=== PATIENT | male | born 1960 | race Caucasian/White ===

== ENCOUNTER 2022-10-09 11:53 | Day surgery (SDC) | payer OTHER, SELFPAY ==
[2022-10-09 12:45] VITALS: BMI 26.3
[2022-10-09 12:57] VITALS: BP 101/75; PULSE 67; RESP 18; TEMP 36.6; O2SAT 95
[2022-10-09] MEDS: Lactated Ringers 1,000 ML 50 ML IVCONT (12:57)
--- NOTE | 2022-10-09 13:50 | P.CONAN_ITS ---
FORM[facility]LY [facility] Past Medical History Medical History Asthma Depression ETOH abuse HTN (hypertension) Insomnia Kidney infection Family History Family history of problems with anesthesia: No Surgical History Surgical History H/O colonoscopy History of surgery on arm History of Problems with Anesthesia: No Social History Social History Patient Tobacco Use Status: Current everyday Tobacco user Smoked in Last 30 Days: Yes Patient Interested in Nicotine Replacement: No Are you DNR?: No Advance Directives: No Advance Directives Information Provided: Yes Nutrition Risks: No Nutritional Risk Meds Allergies Allergy/AdvReac Type Severity Reaction Status Date / Time No Known Allergies Allergy Verified 10/09/22 13:40 Active Medications: Current Medications Lactated Ringer's (Lr) 1,000 mls @ 50 mls/hr IVCONT .Q20H GERALDINE Last Admin: 10/09/22 12:57 Dose: 50 mls/hr Sodium Biphosphate/Sodium Phosphate (Sodium Phosphate,Elmore-Dibasic 133 Ml Enema) 133 ml TN ONCE PRN PRN Reason: Poor Colonoscopy Prep Results Home Medications Medication Instructions Recorded Confirmed Last Taken Type albuterol sulfate 90 mcg/actuation 1 puff inhalation QID PRN SOB 10/08/22 10/08/22 Unknown History aerosol inhaler (Ventolin HFA) amlodipine 5 mg tablet 5 mg PO DAILY 10/08/22 10/08/22 Unknown History bupropion HCl 150 mg tablet,12 hr 150 mg PO Q12H 10/08/22 10/08/22 Unknown History sustained-release losartan 100 mg tablet 100 mg PO DAILY 10/08/22 10/08/22 Unknown History meloxicam 15 mg tablet 15 mg PO DAILY 10/08/22 10/08/22 Unknown History nicotine (polacrilex) 4 mg gum 4 mg buccal Q2H 10/08/22 10/08/22 Unknown History sertraline 100 mg tablet 100 mg PO DAILY 10/08/22 10/08/22 Unknown History tamsulosin 0.4 mg capsule 0.4 mg PO BEDTIME 10/08/22 10/08/22 Unknown History triamcinolone acetonide 0.1 % 1 appl topical TID 10/08/22 10/08/22 Unknown History topical cream umeclidinium 62.5 mcg-vilanterol 1 inh inhalation DAILY 10/08/22 10/08/22 Unknown History 25 mcg/actuation powdr for inhalation (Anoro Ellipta) Exam Exam Date and Time: October 09, 2022 1350 Height,Weight and Vital Signs: Height 5 ft 7 in Weight 76.204 kg Last Vital Signs Temp 97.9 F 10/09/22 12:57 Pulse 67 10/09/22 12:57 Resp 18 10/09/22 12:57 BP 101/75 10/09/22 12:57 Pulse Ox 95 10/09/22 12:57 O2 Del Method Room Air 10/09/22 12:57 Airway Mallampati Class: II TM Dist: >3cm Neck ROM: Full Assessment and Plan Assessment Anesthesia Assessment: Anesthesia Plan Discussed and Chart Reviewed Final Anesthetic Review Family History of Problems with Anesthesia: No History of Problems with Anesthesia: No NPO: Yes ASA Class: II Final Preanesthetic Review: No Changes in Pt Med Stat, Meds/Allgs Chart Reviewed, Consent Obtained/Reviewed and Anes Risks/Benef Reviewed Patient Risk: Low Procedure Risk: Low Anesthetic Plan Anesthetic Plan: MAC: Disposition: Standard PACU
[2022-10-09 14:21] VITALS: BP 93/61; PULSE 57; RESP 15; TEMP 36.6; O2SAT 94
--- NOTE | 2022-10-09 14:21 | PM.OP ---
Brief Operative Note Date of Service: 10/09/22 Pre-op diagnosis: Screening Post-op diagnosis: other (Colon polyps) Procedure: Colonoscopy to the cecum and TI with bx/removal of polyps, and cold snare polypectomy at 40cm Surgeon: Alexi Wilder Anesthesia: MAC Was an [employer] used for this Procedure?: No Estimated blood loss (mL): 2.0 Pathology: other (A. Transverse colon polyp B. Ascending colon polyp C. Polyp at 40cm) Condition: stable Disposition: PACU
[2022-10-09 14:55] VITALS: BP 111/77; PULSE 61; RESP 18; TEMP 36.6; O2SAT 100
--- NOTE | 2022-10-10 00:42 | OP_ITS ---
DATE OF SERVICE: 10/09/2022 SURGEON: Alexi Wilder MD INDICATIONS: The patient presents for evaluation of colorectal cancer screening and personal history of tubular adenoma of the colon. Full consent obtained from him for this, including risks of bleeding and perforation. PREOPERATIVE DIAGNOSIS: POSTOPERATIVE DIAGNOSIS: PROCEDURE PERFORMED: Colonoscopy to cecum and terminal ileum with biopsy and removal of polyps, and cold snare polypectomy. ESTIMATED BLOOD LOSS: COMPLICATIONS: ANESTHESIA: Medication use; monitored anesthesia care. ASSISTANTS: SPECIMENS: PREOPERATIVE DIAGNOSES: Colorectal cancer screening and personal history of tubular adenoma of the colon. POSTOPERATIVE DIAGNOSES: Colorectal cancer screening and personal history of tubular adenoma of the colon, colon polyps, diverticulosis, and internal hemorrhoids. DESCRIPTION OF PROCEDURE: The patient was placed in the left lateral decubitus position. The digital rectal exam revealed no abnormalities. The Olympus videopediatric colonoscope was entered into the rectum and advanced easily to the cecum. Once in the cecum, I did identify normal-appearing cecal pouch with appendiceal orifice and a normal-appearing ileocecal valve. The terminal ileum was cannulated and appeared normal. The scope was withdrawn back in the colon. The entire cecum and ileocecal valve appeared normal. The scope was slowly withdrawn assessing all mucosal surfaces carefully. Preparation was excellent. In the ascending colon, there was an approximately 3 or 4 mm polyp, which was biopsied and completely removed with cold biopsy forceps. In the transverse colon, there was an approximately 4 mm polyp, which was biopsied and completely removed with cold biopsy forceps. At 40 cm, there was an approximately 5 or 6 mm polyp, which was removed by cold snare polypectomy and recovered by suction. The polypectomy site appeared clean, without any sign of residual polyp nor any significant bleeding. I did not visualize any other polyps, colitis, nor angiodysplasia. There was a mild amount of sigmoid diverticulosis. In the rectum, the scope was retroflexed visualizing internal hemorrhoids, but no other pathology. The rectal mucosa appeared normal. Scope was straightened and withdrawn from the patient. He tolerated the procedure well and was returned to the recovery area in stable condition. IMPRESSION: 1. Colon polyps. 2. Diverticulosis. 3. Internal hemorrhoids. PLAN: The results of the pathology will be checked. I would recommend a repeat colonoscopy in 5 years for further screening. He was advised not to use any aspirin and NSAIDs for 1 week. MD ZACARIAS Dee/ELVA / [id number]
== END 2022-10-09 15:10 | disposition home or self-care (01) ==
PROVIDERS: Visit Provider Internal Medicine
PROC: 0DJD8ZZ Inspection of Lower Intestinal Tract, Via Natural or Artificial Opening Endoscopic (ICD-10-PCS; CPT 45378; principal; 2022-10-09 14:10)
DX: Z12.11 Encounter for screening for malignant neoplasm of colon (principal); Z86.010 Personal history of colon polyps; D12.2 Benign neoplasm of ascending colon; D12.3 Benign neoplasm of transverse colon; D12.5 Benign neoplasm of sigmoid colon; K57.30 Diverticulosis of large intestine without perforation or abscess without bleeding; K64.8 Other hemorrhoids; I10 Essential (primary) hypertension; J45.909 Unspecified asthma, uncomplicated; F32.A Depression, unspecified; G47.00 Insomnia, unspecified; Z79.1 Long term (current) use of non-steroidal anti-inflammatories (NSAID); Z79.51 Long term (current) use of inhaled steroids; Z79.899 Other long term (current) drug therapy; F10.21 Alcohol dependence, in remission; F17.210 Nicotine dependence, cigarettes, uncomplicated
CPT/HCPCS: 45385; 45380; 88305